=== PATIENT | male | born 2000 | race Hispanic/Latino ===

== ENCOUNTER 2020-06-13 17:48 | Emergency (ER) | payer OTHER ==
[~2020-06-13] VITALS: Ht 170.2 cm; Wt 90.9 kg
--- NOTE | 2020-06-13 19:03 | REP ---
INDICATION: fall injury COMPARISON: None. TECHNIQUE: Four views left ankle performed. FINDINGS: A nondisplaced fracture is noted at the base of the 5th metatarsal. No other acute fracture or dislocation is seen. There is an old avulsion fracture of the lateral malleolus. There is moderate soft tissue swelling over the lateral malleolus. The ankle mortise is anatomic. IMPRESSION: Nondisplaced fracture base of 5th metatarsal. Old avulsion fracture lateral malleolus with adjacent soft tissue swelling. <Electronically signed by Josh Cisneros > 06/13/20 [id number]
[2020-06-13] MEDS ORDERED: IBUP-1022 PO (20:29)
[2020-06-13] MEDS ORDERED: IBUPROFEN 600MG TAB PO ONE (20:30)
[2020-06-13 20:41] VITALS: BP 171/85
== END 2020-06-13 20:45 | disposition home or self-care (01) ==
LOC: M ED 17:48
DX: S92.352A Displaced fracture of fifth metatarsal bone, left foot, initial encounter for closed fracture (principal); S93.402A Sprain of unspecified ligament of left ankle, initial encounter; X50.1XXA Overexertion from prolonged static or awkward postures, initial encounter; Y92.410 Unspecified street and highway as the place of occurrence of the external cause; Y93.01 Activity, walking, marching and hiking; Y99.8 Other external cause status

== ENCOUNTER 2020-07-18 18:30 | Emergency (ER) | payer OTHER ==
[~2020-07-18] VITALS: Ht 170.2 cm; Wt 100.8 kg
[~2020-07-18 18:30] MED LIST: IBUP-1022 PO
--- NOTE | 2020-07-18 19:48 | REP ---
INDICATION: pain, limited ROM, trauma. COMPARISON: None. TECHNIQUE: AP and lateral views. FINDINGS: Two views of the left forearm demonstrate normal bones, joints, and soft tissues. No fracture or subluxation is seen. No opaque foreign body noted. IMPRESSION: Negative left forearm series. <Electronically signed by Esdras Lara > 07/18/201943
--- NOTE | 2020-07-18 19:48 | REP ---
INDICATION: pain, limited ROM, trauma. COMPARISON: None. TECHNIQUE: Four views. FINDINGS: Four views of the left wrist demonstrate overall normal mineralization. No fracture or subluxation is seen. Bones joints and soft tissues are radiographically unremarkable. IMPRESSION: No fracture seen. Negative left wrist radiographs. <Electronically signed by Esdras Lara > 07/18/201944
--- NOTE | 2020-07-18 20:22 | REPVR ---
PROCEDURE INFORMATION: Exam: XR Left Hand Exam date and time: 07/18/2020 8:12 PM Age: 19 years old Clinical indication: Pain; Hand; Left; Additional info: Fall with pain into knuckles TECHNIQUE: Imaging protocol: XR Left hand. Views: 3 or more views. COMPARISON: CR Wrist, complete 07/18/2020 6:51 PM FINDINGS: Bones/joints: Normal. Soft tissues: Normal. IMPRESSION: No acute findings. Electronically signed by: Hank Alberts On 07/18/2020 20:22:39 PM
[2020-07-18 20:41] VITALS: BP 138/70
== END 2020-07-18 20:59 | disposition home or self-care (01) ==
LOC: M ED 18:30
DX: M25.532 Pain in left wrist (principal); F17.220 Nicotine dependence, chewing tobacco, uncomplicated

== ENCOUNTER → 2021-01-18 | Outpatient (REF) | payer OTHER ==
[2021-01-18 18:08] LABS: APPEARANCE, URINE CLEAR (CLEAR); BACTERIA, URINE AUTO NEGATIVE (NEGATIVE); BILIRUBIN, URINE AUTO NEGATIVE (NEGATIVE); BLOOD, URINE BLOOD NEGATIVE (NEGATIVE); COLOR, URINE STRAW (YELLOW); GLUCOSE, URINE (UA) AUTO NEGATIVE (NEGATIVE); KETONE, URINE AUTO NEGATIVE (NEGATIVE); LEUKOCYTE ESTERASE, URINE AUTO NEGATIVE (NEGATIVE); NITRITE, URINE AUTO NEGATIVE (NEGATIVE); PROTEIN, URINE AUTO NEGATIVE (NEGATIVE); RBC, URINE AUTO 0 /HPF (0-3); SPECIFIC GRAVITY URINE AUTO 1.006 (1.002-1.035); SQUAMOUS EPITHELIAL CELL UR AU 0 /HPF (0-6); UROBILINOGEN, URINE AUTO 0.2 mg/dL (0.0-2.0); WBC, URINE AUTO 0 /HPF (0-3)
[2021-01-18 20:07] LABS: GC DNA AMPLIFICATION NEGATIVE (NEGATIVE)
== END ==
LOC: M SMT 17:24
PROVIDERS: ATTEND Urology
DX: N45.1 Epididymitis (principal)

== ENCOUNTER → 2021-03-23 | Outpatient (CLI) | payer OTHER ==
--- NOTE | 2021-03-23 08:39 | REP ---
INDICATION: EPPDIDYMITIS COMPARISON: None. TECHNIQUE: Cisneros scale and color Doppler evaluation using linear and curved array transducer with color Doppler evaluation. FINDINGS: The testicles and epididymi are relatively normal in contour, size, echogenicity, vascularity and overall appearance. There is no evidence for intratesticular mass lesion, infectious/inflammatory process, or torsion. 6 mm mobile echogenic focus within the mid right epididymal body likely benign. No obvious hydroceles or varicoceles are identified. Right testicle measures 4.4 x 2.3 x 3.5 cm. Left testicle measures 4.3 x 2.4 x 3.2 cm. IMPRESSION: Essentially normal scrotal ultrasound. No evidence for epididymitis or orchitis. <Electronically signed by Long Rosas > 03/23/21 08
== END ==
LOC: M RAD 08:01
PROVIDERS: ATTEND Urology
DX: N45.1 Epididymitis (principal)

== ENCOUNTER → 2021-06-01 | Outpatient (REF) | payer OTHER | LOC: M SMT 13:51 | PROVIDERS: ATTEND Urology | DX: N50.819 Testicular pain, unspecified (principal) ==

== ENCOUNTER → 2021-07-02 | Outpatient (CLI) | payer OTHER ==
[~2021-07-02] MED LIST changes: +BACT800T5 PO; +HYDR-3713 PO
[2021-07-02 14:42] LABS: HEMATOCRIT 43.5 % (42.0-52.0); HEMOGLOBIN 14.5 g/dl (13.5-17.5); MEAN CORPUSCULAR HEMOGLOBIN 30.1 pg (27.0-33.0); MEAN CORPUSCULAR HGB CONC 33.3 g/dl (32.0-36.5); MEAN CORPUSCULAR VOLUME 90.4 fl (80.0-96.0); PLATELET COUNT, AUTOMATED 224 10^3/uL (150-450); RED BLOOD COUNT 4.81 10^6/uL (4.30-6.10); WHITE BLOOD COUNT 5.4 10^3/uL (4.0-10.0)
[2021-07-02 18:41] LABS: ALBUMIN 4.3 GM/DL (3.2-5.2); ALT/SGPT 50 U/L (12-78); BILIRUBIN,TOTAL 0.4 MG/DL (0.2-1.0); BLOOD UREA NITROGEN 9 MG/DL (7-18); CALCIUM LEVEL 9.8 MG/DL (8.5-10.1); CARBON DIOXIDE LEVEL 27 MEQ/L (21-32); CHLORIDE LEVEL 106 MEQ/L (98-107); GLOMERULAR FILTRATION RATE > 60.0 (>60); GLUCOSE, FASTING 102 MG/DL (70-100); POTASSIUM SERUM 3.9 MEQ/L (3.5-5.1); SODIUM LEVEL 140 MEQ/L (136-145); TOTAL PROTEIN 8.1 GM/DL (6.4-8.2)
== END ==
LOC: M LAB 12:31
PROVIDERS: ATTEND Urology
DX: N50.82 Scrotal pain (principal)

== ENCOUNTER 2021-07-05 12:01 | Day surgery (SDC) | payer OTHER ==
[~2021-07-05] VITALS: Ht 170.2 cm; Wt 97.1 kg
[~2021-07-05 12:01] MED LIST changes: -BACT800T5 PO; -HYDR-3713 PO; +LIDOCAINE 1% MDV 20ML VIAL SQ PRN; +LR 1,000 ML IV ONE; +ceFAZolin SOD 2 GM in IV 1 EA IV ONE
[2021-07-05] MEDS ORDERED: LIDOCAINE 1% SDV 30ML VIAL As Ordered ONE (14:03)
[2021-07-05] MEDS ORDERED: BUPIVACAINE HCL 0.25% 30ML VIAL As Ordered ONE (14:03)
[2021-07-05] MEDS ORDERED: BACITRACIN OINTMENT 30GM TUBE As Ordered ONE (14:03)
[2021-07-05] MEDS ORDERED: ONDANSETRON 4MG/2ML VIAL As Ordered ONE (14:30)
[2021-07-05] MEDS ORDERED: LIDOCAINE 2% 100MG/5ML SDV (FOR ANES.) As Ordered ONE (14:30)
[2021-07-05] MEDS ORDERED: SUGAMMADEX SODIUM 500 MG/5 ML VIAL (BRIDION) As Ordered ONE (14:30)
[2021-07-05] MEDS ORDERED: fentaNYL 250 MCG/5 ML INJECTION (J3010) As Ordered ONE (14:30)
[2021-07-05] MEDS ORDERED: dexameTHASONE 4 MG/ML 1ML VIAL (J1100 PER 1MG) As Ordered ONE (14:30)
[2021-07-05] MEDS ORDERED: propofoL 200 MG/20 ML VIAL As Ordered ONE (14:30)
[2021-07-05] MEDS ORDERED: MIDAZOLAM INJ 2MG/2ML VIAL (J2250 PER 1MG) As Ordered ONE (14:30)
[2021-07-05] MEDS ORDERED: ROCURONIUM BROMIDE 50 MG/5 ML VIAL As Ordered ONE (14:30)
[2021-07-05] MEDS ORDERED: KETOROLAC 60MG 2ML VIAL As Ordered ONE (14:38)
--- NOTE | 2021-07-05 15:09 | ROOPDOC ---
[facility] Report Of Operation Report of Operation DATE OF PROCEDURE: 07/05/21 PREPROCEDURE DIAGNOSES: [Chronic left scrotal pain thought to originate in the left epididymis]. POSTPROCEDURE DIAGNOSES: [Same]. PROCEDURE PERFORMED: [total left epididymectomy, left orchidopexy, fulguration of left appendix testis]. SURGEON: [Roger Pereira, FIELD ARTILLERY BASIC: [None], MD ANESTHESIA: [General]. ESTIMATED BLOOD LOSS: Approximately [minimal] mL. COMPLICATIONS: [None]. REMARKS: [20-year-old white male. Chronic left scrotal pain. Pain seems to originate in the left epididymis. Painful and tender head and swelling of the tail with ejaculation. Several talks with the patient. We decided on an epididymectomy. I made it crystal clear that his pain might persist and could even worsen. I explained that an epididymectomy is equivalent to cutting the vas as during a vasectomy. No guarantees given. Again several talks with the patient. 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 FINDINGS: SPECIMENS REMOVED: [Left epididymis] PROCEDURE NOTE: . DESCRIPTION OF PROCEDURE: [I met with the patient in the preop area and again discussed surgery. I made sure we were on the same page. Pain might persist and even worsen. Infertility a possibility. Informed consent obtained. Risks discussed including infection, pain, scarring, bleeding, infertility, injury to the testis and others. Patient was brought to the operating room. Supine posi tion. General anesthesia was secured without difficulty. Prepped and draped in usual sterile fashion. A timeout was performed. Surgery was done under antimicrobial coverage. A transverse left scrotal incision was made. It was carried down using cautery. The left testis was delivered. The tunica vaginalis was opened. The testis looked and felt healthy. The epididymis was e xamined. No mass. The appendix testis was fulgurated with cautery. A total left epididymectomy was performed. Sharp dissection was used. Hemostasis was secured with cautery. Bleeding was minimal. With 4-0 Vicryl I was able to close the defect. Several interrupted stitches were used. Once satisfied I performed an orchidopexy. 3 stitches were placed using chromic. After this the dartos was closed with a running 2-0 chromic and the skin was closed with the same in a vertical mattress fashion. The field was cleaned and dried and Dermabond was applied. Gauze and fishnet underwear were used. Patient tolerated everything well. Counts were correct including instruments, needles and sponges.]. TYSHAWN PEREIRA MD Jul 05, 2021 15:09
[2021-07-05] MEDS ORDERED: BACT800T5 PO (15:13)
[2021-07-05] MEDS ORDERED: HYDR-3713 PO (15:13)
[2021-07-05] MEDS ORDERED: fentaNYL 100 MCG/2 ML INJECTION (J3010) IV PRN (15:30)
[2021-07-05] MEDS ORDERED: oxyCODONE 5MG TAB PO PRN (15:30)
[2021-07-05] MEDS ORDERED: ONDANSETRON 4MG/2ML VIAL IV PRN (15:30)
[2021-07-05] MEDS ORDERED: LR 1,000 ML IV SCH (15:30)
[2021-07-05 16:23] VITALS: BP 112/68
== END 2021-07-05 16:44 | disposition home or self-care (01) ==
LOC: M SDC 12:01
PROVIDERS: ATTEND Urology
DX: N50.82 Scrotal pain (principal); K21.9 Gastro-esophageal reflux disease without esophagitis; R06.83 Snoring; F17.221 Nicotine dependence, chewing tobacco, in remission; Z79.899 Other long term (current) drug therapy
CPT/HCPCS: 54640; 54860; 88304; J0690; J1100; J1885; J2250; J2405; J3010

== ENCOUNTER → 2021-11-08 | Outpatient (REF) ==
[~2021-11-08] MED LIST changes: +BACT800T5 PO; +HYDR-3713 PO; -LIDOCAINE 1% MDV 20ML VIAL SQ PRN; -LR 1,000 ML IV ONE; -ceFAZolin SOD 2 GM in IV 1 EA IV ONE
== END ==
LOC: M PLAIMG 13:17
PROVIDERS: ATTEND Internal Medicine
DX: R06.02 Shortness of breath (principal)